=== PATIENT | male | born 1980 | race Caucasian/White ===

== ENCOUNTER 2022-10-26 14:10 | Emergency (ER) | payer SELFPAY ==
[2022-10-26] MEDS ORDERED: Diphtheria,Pertussis(Acell),Tetanus Vaccine 0.5 ML Syringe IM ONE (14:43)
[2022-10-26] MEDS ORDERED: Lidocaine 1% PF 2 ML SDV INJECT ONE (14:43)
== END 2022-10-26 15:20 | disposition home or self-care (01) ==
LOC: MW.ED 14:10
DX: S61.215A Laceration without foreign body of left ring finger without damage to nail, initial encounter (principal); Z88.0 Allergy status to penicillin; Z23 Encounter for immunization; W26.8XXA Contact with other sharp object(s), not elsewhere classified, initial encounter
CPT/HCPCS: 12001; 90471; 90715; 99282-25; 99283; J3490